=== PATIENT | female | born 1995 | race Caucasian/White ===

== ENCOUNTER 2017-06-21 12:11 | Emergency (ER) | payer OTHER ==
[2017-06-21] MEDS ORDERED: HYDROCOD/APAP 5/325 PREPACK#6 BTL TAKEHOME ONE (13:45)
--- NOTE | 2017-06-21 13:45 | EDPHY ---
H & P Stated Complaint: right ankle injury - Personal History LMP (Females 10-55): Now Current Tetanus/Diphtheria Vaccine: Yes Current Tetanus Diphtheria and Acellular Pertussis (TDAP): Yes - Medical/Surgical History Hx Asthma: No Hx Chronic Respiratory Disease: No Hx Diabetes: No Hx Cardiac Disease: No Hx Renal Disease: No Hx Cirrhosis: No Hx Alcoholism: No Hx HIV/AIDS: No Hx Splenectomy or Spleen Trauma: No Other PMH: right wrist surg/fx - Social History Smoking Status: Never smoked HPI/ROS: Chief complaint: Right ankle injury History of present illness: This is a 22-year-old female who presents to the emergency department for a right ankle injury. Patient was playing rugby when she was tackled and her ankle was stepped on. Since then she has had pain to the outer aspect of the ankle. She cannot walk on it. She denies open wounds. She denies abnormal coolness or paresthesias to the foot. She denies other trauma. (Max Muniz) - Physical Exam Exam: General: Alert, nontoxic Skin: No open wounds to the right lower extremity Musculoskeletal: Tenderness to the lateral malleolar region of the right ankle. The rest the ankle is nontender. Achilles tendon is intact. The foot, lower leg and knee are nontender. Vascular: DP and PT pulses 2+. Capillary refill brisk in the right foot. Neurologic: Sensation intact throughout the right foot. (Max Muniz) Constitutional: Initial Vital Signs Temperature (C) 37.4 C 06/21/17 12:21 Heart Rate 73 06/21/17 12:21 Respiratory Rate 18 06/21/17 12:21 Blood Pressure 124/78 H 06/21/17 12:21 O2 Sat (%) 94 06/21/17 12:21 O2 Delivery Mode Room Air Allergies/Adverse Reactions: No Known Allergies Allergy (Unverified 06/21/17 12:24) Home Medications: Medication Instructions Recorded Hydrocodone/APAP 5/325 [[place] 1 tab PO Q6H #10 tab 06/21/17 5/325 (*)] IRON 06/21/17 Medical Decision Making - Diagnostics Imaging: I viewed and interpreted images myself Procedures: Procedure: Splint placement. A posterior and sugar-tong short-leg splint was applied. After application of the splint I returned and re-examined the patient. The splint was adequately immobilizing the joint and distal to the splint the patient's circulation and sensation was intact. Patient is given crutches (Max Muniz) ED Course/Re-evaluation: Patient seen under the supervision of my secondary supervising physician Dr. Rodrick Hodge. Patient presents to the emergency department for a right ankle injury. She has a distal fibular fracture. Her foot is neurovascularly intact. She is splinted. Home care including pain management is discussed. She is asked to follow up with Orthopedics when she returns home next week. Return precautions are given. Patient voiced understanding and agreement with plan (Max Muniz) I did not see this patient while she was in the emergency department. However her care was discussed with the PA while the patient was in the department. I agree with treatment plan and management (Rodrick Hodge) Differential Diagnosis: Included but not limited to contusion, sprain or strain, bony fracture, joint dislocation (Max Muniz) - Data Points Medications Given: Discontinued Medications Hydrocodone Bitart/Acetaminophen ([place]ullen 5/325mg Prepack#6) 1 btl TAKEHOME EDNOW ONE Stop: 06/21/17 13:46 Last Admin: 06/21/17 14:46 Dose: 1 btl Ibuprofen (Motrin) 600 mg PO EDNOW ONE Stop: 06/21/17 14:02 Last Admin: 06/21/17 14:15 Dose: 600 mg Departure - Departure Disposition: Home, Routine, Self-Care Clinical Impression: Ankle fracture, right Condition: Good Instructions: Hydrocodone/Acetaminophen (By mouth), Ankle Fracture (ED) Additional Instructions: Follow-up with orthopedics when you return home to [place] In regards to pain control see the following: Use ibuprofen [600] mg [3] times a day for the next 2-3 days for pain In addition You have been prescribed [Cullen] for pain. [Cullen] contains Tylenol, do not take extra Tylenol/acetaminophen/Apap with it. It is sedating. If symptoms worsen or new symptoms develop return to the emergency room for recheck Referrals: Patient,NotPresent [Unknown] - As per Instructions Tyrone Recinos MD [Medical Doctor] - As per Instructions Prescriptions: Hydrocodone/APAP 5/325 [Cullen 5/325 (*)] 1 tab PO Q6H #10 tab
--- NOTE | 2017-06-21 13:45 | EDPHY ---
H & P Stated Complaint: right ankle injury - Personal History LMP (Females 10-55): Now Current Tetanus/Diphtheria Vaccine: Yes Current Tetanus Diphtheria and Acellular Pertussis (TDAP): Yes - Medical/Surgical History Hx Asthma: No Hx Chronic Respiratory Disease: No Hx Diabetes: No Hx Cardiac Disease: No Hx Renal Disease: No Hx Cirrhosis: No Hx Alcoholism: No Hx HIV/AIDS: No Hx Splenectomy or Spleen Trauma: No Other PMH: right wrist surg/fx - Social History Smoking Status: Never smoked HPI/ROS: Chief complaint: Right ankle injury History of present illness: This is a 22-year-old female who presents to the emergency department for a right ankle injury. Patient was playing rugby when she was tackled and her ankle was stepped on. Since then she has had pain to the outer aspect of the ankle. She cannot walk on it. She denies open wounds. She denies abnormal coolness or paresthesias to the foot. She denies other trauma. (Max Muniz) - Physical Exam Exam: General: Alert, nontoxic Skin: No open wounds to the right lower extremity Musculoskeletal: Tenderness to the lateral malleolar region of the right ankle. The rest the ankle is nontender. Achilles tendon is intact. The foot, lower leg and knee are nontender. Vascular: DP and PT pulses 2+. Capillary refill brisk in the right foot. Neurologic: Sensation intact throughout the right foot. (Max Muniz) Constitutional: Initial Vital Signs Temperature (C) 37.4 C 06/21/17 12:21 Heart Rate 73 06/21/17 12:21 Respiratory Rate 18 06/21/17 12:21 Blood Pressure 124/78 H 06/21/17 12:21 O2 Sat (%) 94 06/21/17 12:21 O2 Delivery Mode Room Air Allergies/Adverse Reactions: No Known Allergies Allergy (Unverified 06/21/17 12:24) Home Medications: Medication Instructions Recorded Hydrocodone/APAP 5/325 [[address] 1 tab PO Q6H #10 tab 06/21/17 5/325 (*)] IRON 06/21/17 Medical Decision Making - Diagnostics Imaging: I viewed and interpreted images myself Procedures: Procedure: Splint placement. A posterior and sugar-tong short-leg splint was applied. After application of the splint I returned and re-examined the patient. The splint was adequately immobilizing the joint and distal to the splint the patient's circulation and sensation was intact. Patient is given crutches (Max Muniz) ED Course/Re-evaluation: Patient seen under the supervision of my secondary supervising physician Dr. Rodrick Hodge. Patient presents to the emergency department for a right ankle injury. She has a distal fibular fracture. Her foot is neurovascularly intact. She is splinted. Home care including pain management is discussed. She is asked to follow up with Orthopedics when she returns home next week. Return precautions are given. Patient voiced understanding and agreement with plan (Max Muniz) I did not see this patient while she was in the emergency department. However her care was discussed with the PA while the patient was in the department. I agree with treatment plan and management (Rodrick Hodge) Differential Diagnosis: Included but not limited to contusion, sprain or strain, bony fracture, joint dislocation (Max Muniz) - Data Points Medications Given: Discontinued Medications Hydrocodone Bitart/Acetaminophen ([address] 5/325mg Prepack#6) 1 btl TAKEHOME EDNOW ONE Stop: 06/21/17 13:46 Last Admin: 06/21/17 14:46 Dose: 1 btl Ibuprofen (Motrin) 600 mg PO EDNOW ONE Stop: 06/21/17 14:02 Last Admin: 06/21/17 14:15 Dose: 600 mg Departure - Departure Disposition: Home, Routine, Self-Care Clinical Impression: Ankle fracture, right Condition: Good Instructions: Hydrocodone/Acetaminophen (By mouth), Ankle Fracture (ED) Additional Instructions: Follow-up with orthopedics when you return home to [place] In regards to pain control see the following: Use ibuprofen [600] mg [3] times a day for the next 2-3 days for pain In addition You have been prescribed [[address]] for pain. [[address]] contains Tylenol, do not take extra Tylenol/acetaminophen/Apap with it. It is sedating. If symptoms worsen or new symptoms develop return to the emergency room for recheck Referrals: Patient,NotPresent [Unknown] - As per Instructions Tyrone Recinos MD [Medical Doctor] - As per Instructions Prescriptions: Hydrocodone/APAP 5/325 [[address] 5/325 (*)] 1 tab PO Q6H #10 tab
--- NOTE | 2017-06-21 13:45 | EDPHY ---
H & P Stated Complaint: right ankle injury - Personal History LMP (Females 10-55): Now Current Tetanus/Diphtheria Vaccine: Yes Current Tetanus Diphtheria and Acellular Pertussis (TDAP): Yes - Medical/Surgical History Hx Asthma: No Hx Chronic Respiratory Disease: No Hx Diabetes: No Hx Cardiac Disease: No Hx Renal Disease: No Hx Cirrhosis: No Hx Alcoholism: No Hx HIV/AIDS: No Hx Splenectomy or Spleen Trauma: No Other PMH: right wrist surg/fx - Social History Smoking Status: Never smoked HPI/ROS: Chief complaint: Right ankle injury History of present illness: This is a 22-year-old female who presents to the emergency department for a right ankle injury. Patient was playing rugby when she was tackled and her ankle was stepped on. Since then she has had pain to the outer aspect of the ankle. She cannot walk on it. She denies open wounds. She denies abnormal coolness or paresthesias to the foot. She denies other trauma. (Max Muniz) - Physical Exam Exam: General: Alert, nontoxic Skin: No open wounds to the right lower extremity Musculoskeletal: Tenderness to the lateral malleolar region of the right ankle. The rest the ankle is nontender. Achilles tendon is intact. The foot, lower leg and knee are nontender. Vascular: DP and PT pulses 2+. Capillary refill brisk in the right foot. Neurologic: Sensation intact throughout the right foot. (Max Muniz) Constitutional: Initial Vital Signs Temperature (C) 37.4 C 06/21/17 12:21 Heart Rate 73 06/21/17 12:21 Respiratory Rate 18 06/21/17 12:21 Blood Pressure 124/78 H 06/21/17 12:21 O2 Sat (%) 94 06/21/17 12:21 O2 Delivery Mode Room Air Allergies/Adverse Reactions: No Known Allergies Allergy (Unverified 06/21/17 12:24) Home Medications: Medication Instructions Recorded Hydrocodone/APAP 5/325 [[place] 1 tab PO Q6H #10 tab 06/21/17 5/325 (*)] IRON 06/21/17 Medical Decision Making - Diagnostics Imaging: I viewed and interpreted images myself Procedures: Procedure: Splint placement. A posterior and sugar-tong short-leg splint was applied. After application of the splint I returned and re-examined the patient. The splint was adequately immobilizing the joint and distal to the splint the patient's circulation and sensation was intact. Patient is given crutches (Max Muniz) ED Course/Re-evaluation: Patient seen under the supervision of my secondary supervising physician Dr. Rodrick Hodge. Patient presents to the emergency department for a right ankle injury. She has a distal fibular fracture. Her foot is neurovascularly intact. She is splinted. Home care including pain management is discussed. She is asked to follow up with Orthopedics when she returns home next week. Return precautions are given. Patient voiced understanding and agreement with plan (Max Muniz) I did not see this patient while she was in the emergency department. However her care was discussed with the PA while the patient was in the department. I agree with treatment plan and management (Rodrick Hodge) Differential Diagnosis: Included but not limited to contusion, sprain or strain, bony fracture, joint dislocation (Max Muniz) - Data Points Medications Given: Discontinued Medications Hydrocodone Bitart/Acetaminophen ([place] 5/325mg Prepack#6) 1 btl TAKEHOME EDNOW ONE Stop: 06/21/17 13:46 Last Admin: 06/21/17 14:46 Dose: 1 btl Ibuprofen (Motrin) 600 mg PO EDNOW ONE Stop: 06/21/17 14:02 Last Admin: 06/21/17 14:15 Dose: 600 mg Departure - Departure Disposition: Home, Routine, Self-Care Clinical Impression: Ankle fracture, right Condition: Good Instructions: Hydrocodone/Acetaminophen (By mouth), Ankle Fracture (ED) Additional Instructions: Follow-up with orthopedics when you return home to [place] In regards to pain control see the following: Use ibuprofen [600] mg [3] times a day for the next 2-3 days for pain In addition You have been prescribed [[place]ian] for pain. [[place]] contains Tylenol, do not take extra Tylenol/acetaminophen/Apap with it. It is sedating. If symptoms worsen or new symptoms develop return to the emergency room for recheck Referrals: Patient,NotPresent [Unknown] - As per Instructions Tyrone Recinos MD [Medical Doctor] - As per Instructions Prescriptions: Hydrocodone/APAP 5/325 [[place] 5/325 (*)] 1 tab PO Q6H #10 tab
[2017-06-21] MEDS ORDERED: IBUPROFEN 600 MG TAB PO ONE ×2 (13:59→14:01)
[2017-06-21 14:59] VITALS: BP 139/77; PULSE 68; RESP 15; TEMP 98.8; O2SAT 98
== END 2017-06-21 14:58 | disposition home or self-care (01) ==
DX: S82.434A Nondisplaced oblique fracture of shaft of right fibula, initial encounter for closed fracture (principal); W18.41XA Slipping, tripping and stumbling without falling due to stepping on object, initial encounter; Y99.8 Other external cause status; Y93.63 Activity, rugby